=== PATIENT | female | born 1960 | race Caucasian/White ===

== ENCOUNTER 2018-06-17 13:14 | Emergency (ER) | payer OTHER ==
[~2018-06-17] VITALS: Ht 172.7 cm; Wt 54.0 kg
[2018-06-17 14:18] LABS: BASOPHILS # (AUTO) 0.02 x10^3/uL (0-0.1); BASOPHILS % (AUTO) 0 % (0-1); EOSINOPHILS # (AUTO) 0.08 x10^3/uL (0-0.4); EOSINOPHILS % (AUTO) 1 % (1-7); LYMPHOCYTES % (AUTO) 16 % (22-44); MD NO; MEAN CORPUSCULAR HEMOGLOBIN 30.9 pg (27.0-34.8); MEAN CORPUSCULAR HGB CONC 33.3 g/dL (32.4-35.8); MEAN CORPUSCULAR VOLUME 92.8 fL (80-100); MEAN PLATELET VOLUME 8.3 fL (7.4-10.4); MONOCYTES # (AUTO) 0.32 x10^3/uL (0.2-0.8); MONOCYTES % (AUTO) 4 % (2-9); NEUTROPHILS # (AUTO) 7.14 x10^3/uL (1.8-6.8); NEUTROPHILS % (AUTO) 80 % (42-75); PLATELET COUNT 450 x10^3/uL (130-400); RED BLOOD COUNT 5.24 x10^6/uL (3.82-5.3); RED CELL DISTRIBUTION WIDTH 13.4 % (9.6-15.2)
[2018-06-17 14:23] LABS: ALANINE AMINOTRANSFERASE 34 U/L (12-78); ALBUMIN 3.7 g/dL (3.4-5.0); ANION GAP 11 mmol/L (5-15); CALCIUM 10.7 mg/dL (8.5-10.1); CHLORIDE 104 mmol/L (98-107); CREATININE 1.29 mg/dL (0.55-1.02)
[2018-06-17 14:25] LABS: ALKALINE PHOSPHATASE 55 U/L (45-117); BILIRUBIN,TOTAL 0.2 mg/dL (0.2-1.0); TOTAL PROTEIN 7.4 g/dL (6.4-8.2)
[2018-06-17 14:42] LABS: MICROSCOPIC INDICATED
[2018-06-17 14:43] LABS: CULTURE INDICATED? YES
[2018-06-17] MEDS ORDERED: APAP/CODEINE 300/30MG TABLET PO PRN (16:00)
[2018-06-17 16:17] VITALS: BP 137/92
[2018-06-17] MEDS ORDERED: APAP/CODEINE 300/30MG TABLET PO ONE (16:30)
[2018-06-18] MEDS ORDERED: ESTR0.5T PO (23:36)
[2018-06-18] MEDS ORDERED: LISI-167 PO (23:36)
[2018-06-18] MEDS ORDERED: OMEP20TA62 PO (23:36)
== END 2018-06-17 16:28 | disposition home or self-care (01) ==
LOC: ED 16:00
DX: N30.00 Acute cystitis without hematuria (principal); I10 Essential (primary) hypertension
CPT/HCPCS: 36415; 76700; 80053; 81001; 83690; 85025; 87077; 87086; 87186; 93005; 99284

== ENCOUNTER 2018-06-21 01:47 | Emergency (ER) | payer OTHER ==
[~2018-06-21] VITALS: Ht 172.7 cm; Wt 53.3 kg
[~2018-06-21 01:47] MED LIST: ESTR0.5T PO; LISI-167 PO; OMEP20TA62 PO
[2018-06-21] MEDS ORDERED: NITR100C56 PO (01:55)
[2018-06-21] MEDS ORDERED: ONDA4TAB7 PO (01:55)
[2018-06-21] MEDS ORDERED: OXYC-302 PO (01:55)
[2018-06-21] MEDS ORDERED: HYDROmorphone 2 MG/ML, 1ML ONE (02:18)
[2018-06-21] MEDS: HYDROmorphone 2 MG/ML, 1ML IVPush PRN ×2 (02:21→02:47)
[2018-06-21 02:29] LABS: BASOPHILS # (AUTO) 0.04 x10^3/uL (0-0.1); BASOPHILS % (AUTO) 0 % (0-1); EOSINOPHILS # (AUTO) 0.12 x10^3/uL (0-0.4); EOSINOPHILS % (AUTO) 1 % (1-7); LYMPHOCYTES # (AUTO) 1.45 x10^3/uL (1-3.4); LYMPHOCYTES % (AUTO) 13 % (22-44); MD NO; MEAN CORPUSCULAR HEMOGLOBIN 30.7 pg (27.0-34.8); MEAN CORPUSCULAR VOLUME 93.2 fL (80-100); MEAN PLATELET VOLUME 7.9 fL (7.4-10.4); MONOCYTES # (AUTO) 0.57 x10^3/uL (0.2-0.8); MONOCYTES % (AUTO) 5 % (2-9); NEUTROPHILS % (AUTO) 81 % (42-75); PLATELET COUNT 363 x10^3/uL (130-400); RED BLOOD COUNT 4.79 x10^6/uL (3.82-5.3); RED CELL DISTRIBUTION WIDTH 13.2 % (9.6-15.2)
[2018-06-21 02:40] LABS: ALANINE AMINOTRANSFERASE 28 U/L (12-78); ALBUMIN 3.3 g/dL (3.4-5.0); ANION GAP 10 mmol/L (5-15); CALCIUM 7.9 mg/dL (8.5-10.1); CHLORIDE 103 mmol/L (98-107); CREATININE 0.76 mg/dL (0.55-1.02)
[2018-06-21 02:42] LABS: ALKALINE PHOSPHATASE 51 U/L (45-117); BILIRUBIN,TOTAL 0.2 mg/dL (0.2-1.0); TOTAL PROTEIN 6.5 g/dL (6.4-8.2)
[2018-06-21 03:00] VITALS: BP 146/78
[2018-06-21] MEDS ORDERED: HYDROmorphone 1 MG/ML, 1ML IM ONE (03:00)
== END 2018-06-21 03:26 | disposition home or self-care (01) ==
LOC: ED 01:58
DX: K83.8 Other specified diseases of biliary tract (principal); K80.50 Calculus of bile duct without cholangitis or cholecystitis without obstruction; I10 Essential (primary) hypertension
CPT/HCPCS: 36415; 80053; 83690; 85025; 96372; 99283; J1170

== ENCOUNTER 2018-06-23 11:01 | Inpatient (IN) | payer OTHER ==
[~2018-06-23] VITALS: Ht 172.7 cm; Wt 57.1 kg
[~2018-06-23 11:01] MED LIST changes: +NITR100C56 PO; +ONDA4TAB7 PO; +OXYC-302 PO
[2018-06-23] MEDS ORDERED: SODIUM CHLORIDE 0.9% 1,000 ML IV ONE (12:12)
[2018-06-23] MEDS ORDERED: PANTOPRAZOLE 80 MG in SODIUM CHLORIDE 0.9% 50 ML IVPB ONE (12:12)
[2018-06-23 12:29] LABS: BASOPHILS # (AUTO) 0.14 x10^3/uL (0-0.1); BASOPHILS % (AUTO) 1 % (0-1); EOSINOPHILS # (AUTO) 0.03 x10^3/uL (0-0.4); EOSINOPHILS % (AUTO) 0 % (1-7); LYMPHOCYTES # (AUTO) 1.48 x10^3/uL (1-3.4); LYMPHOCYTES % (AUTO) 15 % (22-44); MD NO; MEAN CORPUSCULAR HEMOGLOBIN 31.2 pg (27.0-34.8); MEAN CORPUSCULAR HGB CONC 33.9 g/dL (32.4-35.8); MEAN CORPUSCULAR VOLUME 92.2 fL (80-100); MEAN PLATELET VOLUME 8.3 fL (7.4-10.4); MONOCYTES # (AUTO) 0.47 x10^3/uL (0.2-0.8); MONOCYTES % (AUTO) 5 % (2-9); NEUTROPHILS # (AUTO) 7.67 x10^3/uL (1.8-6.8); NEUTROPHILS % (AUTO) 78 % (42-75); PLATELET COUNT 428 x10^3/uL (130-400); RED BLOOD COUNT 5.05 x10^6/uL (3.82-5.3); RED CELL DISTRIBUTION WIDTH 12.9 % (9.6-15.2)
[2018-06-23] MEDS ORDERED: ONDANSETRON 2MG/ML, 2ML ONE (12:29)
[2018-06-23] MEDS ORDERED: ONDANSETRON 2MG/ML, 2ML IVPush ONE (12:30)
[2018-06-23] MEDS ORDERED: MORPHINE SULFATE 4 MG/ML, 1ML IVPush PRN (12:30)
[2018-06-23] MEDS ORDERED: MORPHINE SULFATE 4 MG/ML, 1ML ONE (12:30)
[2018-06-23 12:41] LABS: ALANINE AMINOTRANSFERASE 30 U/L (12-78); ALBUMIN 3.6 g/dL (3.4-5.0); ANION GAP 11 mmol/L (5-15); CHLORIDE 104 mmol/L (98-107); CREATININE 0.84 mg/dL (0.55-1.02)
[2018-06-23 12:43] LABS: ALKALINE PHOSPHATASE 55 U/L (45-117); BILIRUBIN,TOTAL 0.3 mg/dL (0.2-1.0)
[2018-06-23] MEDS ORDERED: SODIUM CHLORIDE FLUSH 10ML SYR IVF PRN (14:00)
[2018-06-23] MEDS ORDERED: SUMA20SP IH (14:13)
[2018-06-23] MEDS ORDERED: ZOLP-413 PO (14:13)
[2018-06-23] MEDS ORDERED: ESCI5TAB PO (14:13)
[2018-06-23] MEDS ORDERED: SUCR1TAB PO (14:13)
[2018-06-23] MEDS ORDERED: DICY10CA3 PO (14:13)
[2018-06-23] MEDS ORDERED: ASPI-691 PO (14:13)
[2018-06-23 14:15] LABS: MICROSCOPIC NOT IND
[2018-06-23 14:25] LABS: CULTURE INDICATED? NO
[2018-06-23] MEDS ORDERED: ONDANSETRON ODT 4 MG PO PRN (15:30)
[2018-06-23] MEDS ORDERED: ONDANSETRON 2MG/ML, 2ML IVPush PRN (15:30)
[2018-06-23] MEDS ORDERED: ACETAMINOPHEN 325 MG TABLET PO PRN (15:30)
[2018-06-23] MEDS ORDERED: HYDROmorphone 2 MG/ML, 1ML IVPush PRN (16:00)
[2018-06-23 16:30] VITALS: BP 135/35
[2018-06-23] MEDS: SODIUM CHLORIDE 0.9% 1,000 ML IV SCH (16:49)
[2018-06-23] MEDS: PANTOPRAZOLE 80 MG in SODIUM CHLORIDE 0.9% 100 ML IV SCH (16:58)
[2018-06-23] MEDS ORDERED: GLYCERIN ADULT SUPP PR PRN (17:30)
[2018-06-23] MEDS ORDERED: hydrALAzine 20 MG/ML, 1ML IV PRN (18:30)
[2018-06-23 20:12] VITALS: BP 118/56
[2018-06-24 00:47] VITALS: BP 114/70
[2018-06-24] MEDS: PANTOPRAZOLE 80 MG in SODIUM CHLORIDE 0.9% 100 ML IV SCH (01:59)
[2018-06-24] MEDS: morphine SULFATE 10 MG/ML, 1ML IVPush PRN ×2 (03:44→08:56)
[2018-06-24] MEDS: SODIUM CHLORIDE 0.9% 1,000 ML IV SCH (05:21)
[2018-06-24 05:23] LABS: ANION GAP 9 mmol/L (5-15); CALCIUM 7.7 mg/dL (8.5-10.1); CHLORIDE 109 mmol/L (98-107)
[2018-06-24 05:26] LABS: CREATININE 0.71 mg/dL (0.55-1.02)
[2018-06-24 05:29] LABS: BASOPHILS # (AUTO) 0.05 x10^3/uL (0-0.1); BASOPHILS % (AUTO) 1 % (0-1); EOSINOPHILS # (AUTO) 0.39 x10^3/uL (0-0.4); EOSINOPHILS % (AUTO) 6 % (1-7); LYMPHOCYTES # (AUTO) 1.93 x10^3/uL (1-3.4); LYMPHOCYTES % (AUTO) 28 % (22-44); MD NO; MEAN CORPUSCULAR HEMOGLOBIN 31.1 pg (27.0-34.8); MEAN CORPUSCULAR HGB CONC 33.6 g/dL (32.4-35.8); MEAN CORPUSCULAR VOLUME 92.6 fL (80-100); MEAN PLATELET VOLUME 8.2 fL (7.4-10.4); MONOCYTES # (AUTO) 0.49 x10^3/uL (0.2-0.8); MONOCYTES % (AUTO) 7 % (2-9); NEUTROPHILS # (AUTO) 3.95 x10^3/uL (1.8-6.8); NEUTROPHILS % (AUTO) 58 % (42-75); PLATELET COUNT 345 x10^3/uL (130-400); RED BLOOD COUNT 4.43 x10^6/uL (3.82-5.3); RED CELL DISTRIBUTION WIDTH 13.2 % (9.6-15.2)
[2018-06-24] MEDS: SENNA/DOCUSATE TABLET PO SCH (08:56)
[2018-06-24] MEDS ORDERED: BISACODYL 10 MG SUPP PR SCH (09:00)
[2018-06-24] MEDS ORDERED: GLYCERIN ADULT SUPP PR SCH (09:00)
[2018-06-24 11:21] VITALS: BP 133/72
[2018-06-24] MEDS ORDERED: PROPOFOL 10 MG/ML, 20ML ONE (13:12)
[2018-06-24] MEDS: PANTOPROZOLE 40MG TABLET PO SCH (13:30)
[2018-06-24] MEDS ORDERED: PROMETHAZINE 25 MG/ML, 1ML IV PRN (14:00)
[2018-06-24] MEDS ORDERED: MORPHINE SULFATE 4 MG/ML, 1ML IVPush PRN (14:00)
[2018-06-24] MEDS ORDERED: HALOPERIDOL 5 MG/ML IV PRN (14:00)
[2018-06-24] MEDS ORDERED: DIAZEPAM 5 MG/ML, 2ML IVPush PRN (14:00)
[2018-06-24] MEDS ORDERED: MIDAZOLAM 1 MG/ML, 2ML IV PRN (14:00)
[2018-06-24] MEDS ORDERED: FENTANYL PF 100 MCG/2ML IV PRN (14:00)
[2018-06-24] MEDS ORDERED: EPHEDRINE 50 MG/ML, 1ML IVPush PRN (14:00)
[2018-06-24] MEDS ORDERED: ONDANSETRON 2MG/ML, 2ML IV PRN (14:00)
[2018-06-24] MEDS ORDERED: MEPERIDINE/PF 25MG/0.5ML IVPush PRN (14:00)
[2018-06-24] MEDS ORDERED: LABETALOL 5MG/ML, 20ML IV PRN (14:00)
[2018-06-24] MEDS ORDERED: HYDROmorphone 1 MG/ML, 1ML IV PRN (14:00)
[2018-06-24] MEDS ORDERED: OXYcodone 5 MG/5 ML ORAL.SOL UDC PO PRN (14:00)
[2018-06-24] MEDS ORDERED: PROMETHAZINE 12.5 MG SUPP PR PRN (14:00)
[2018-06-24] MEDS ORDERED: hydrALAzine 20 MG/ML, 1ML IV PRN (14:00)
[2018-06-24] MEDS ORDERED: ONDANSETRON ODT 8 MG PO PRN (14:00)
[2018-06-24] MEDS ORDERED: ALBUTEROL SULFATE 2.5 MG/3 ML NPPB PRN (14:00)
[2018-06-24] MEDS: SUCRALFATE 1 GM TABLET PO SCH ×2 (15:50→21:15)
[2018-06-24] MEDS: BISACODYL 10 MG SUPP PR SCH (15:50)
[2018-06-24] MEDS ORDERED: SUMATRIPTAN 20 MG NAS PRN (18:30)
[2018-06-24 20:24] VITALS: BP 125/73
[2018-06-24] MEDS ORDERED: DIPHENHYDRAMINE 25 MG CAPSULE PO PRN (21:30)
[2018-06-25 01:27] VITALS: BP 138/77
[2018-06-25] MEDS: SODIUM CHLORIDE 0.9% 1,000 ML IV SCH (02:04)
[2018-06-25] MEDS: PANTOPROZOLE 40MG TABLET PO SCH (02:07)
[2018-06-25 04:55] LABS: BASOPHILS # (AUTO) 0.06 x10^3/uL (0-0.1); BASOPHILS % (AUTO) 1 % (0-1); EOSINOPHILS # (AUTO) 0.32 x10^3/uL (0-0.4); EOSINOPHILS % (AUTO) 5 % (1-7); LYMPHOCYTES # (AUTO) 1.52 x10^3/uL (1-3.4); LYMPHOCYTES % (AUTO) 23 % (22-44); MD NO; MEAN CORPUSCULAR HEMOGLOBIN 30.2 pg (27.0-34.8); MEAN CORPUSCULAR HGB CONC 32.4 g/dL (32.4-35.8); MEAN CORPUSCULAR VOLUME 93.1 fL (80-100); MEAN PLATELET VOLUME 7.8 fL (7.4-10.4); MONOCYTES # (AUTO) 0.37 x10^3/uL (0.2-0.8); MONOCYTES % (AUTO) 6 % (2-9); NEUTROPHILS # (AUTO) 4.46 x10^3/uL (1.8-6.8); NEUTROPHILS % (AUTO) 66 % (42-75); PLATELET COUNT 337 x10^3/uL (130-400); RED BLOOD COUNT 4.18 x10^6/uL (3.82-5.3); RED CELL DISTRIBUTION WIDTH 13.3 % (9.6-15.2)
[2018-06-25 05:05] LABS: ANION GAP 7 mmol/L (5-15); CALCIUM 7.4 mg/dL (8.5-10.1); CHLORIDE 113 mmol/L (98-107); CREATININE 0.58 mg/dL (0.55-1.02)
[2018-06-25] MEDS: SUCRALFATE 1 GM TABLET PO SCH ×2 (06:22→11:21)
[2018-06-25 06:56] VITALS: BP 139/76
[2018-06-25] MEDS: SENNA/DOCUSATE TABLET PO SCH (08:27)
[2018-06-25] MEDS: BISACODYL 10 MG SUPP PR SCH (08:53)
[2018-06-25] MEDS ORDERED: BISACODYL 10 MG SUPP PR SCH (09:00)
[2018-06-25] MEDS ORDERED: PANT40TA5 PO (10:34)
[2018-06-25] MEDS ORDERED: SENN1TAB8 PO (10:34)
[2018-06-25] MEDS ORDERED: SUCR1TAB33 PO (10:34)
== END 2018-06-25 13:24 | disposition home or self-care (01) | DRG 384 ==
LOC: ED 13:32 → EDIP 14:00 → 3NE 16:12 → DCLOUNGE 06-25 13:15
PROVIDERS: ADMIT Family Medicine; ATTEND Family Medicine
PROC: 0DB98ZX Excision of Duodenum, Via Natural or Artificial Opening Endoscopic, Diagnostic (ICD-10-PCS; principal; 2018-06-24 13:00)
DX: K26.9 Duodenal ulcer, unspecified as acute or chronic, without hemorrhage or perforation (principal); G43.909 Migraine, unspecified, not intractable, without status migrainosus; I10 Essential (primary) hypertension; K21.9 Gastro-esophageal reflux disease without esophagitis; K44.9 Diaphragmatic hernia without obstruction or gangrene; K59.09 Other constipation; Z79.899 Other long term (current) drug therapy; Z87.11 Personal history of peptic ulcer disease; Z90.710 Acquired absence of both cervix and uterus
CPT/HCPCS: 36415; 74021; 78227; 80048; 80053; 81003; 83690; 83735; 84100; 85025; 86850; 86900; 88305; 93005; 96374; 96375; 99285; G0378; J2405; J2704; A9537; C9113; C9898; J2270; J7030; Q0163